=== PATIENT | female | born 1980 | race African-American/Black ===

== ENCOUNTER 2021-08-01 13:15 | Emergency (ER) | payer MEDICAID ==
[~2021-08-01] VITALS: Ht 182.9 cm; Wt 107.0 kg
[~2021-08-01 13:15] MED LIST: NO MEDICATIONS REPORTED
[2021-08-01] MEDS ORDERED: VISCOUS LIDOCAINE 2% 15 ML UDC PO STA (13:55)
[2021-08-01] MEDS ORDERED: MAGNESIUM/ALUMINUM HYDROXIDE/SIMETHICONE 30ML UDC PO STA (13:55)
[2021-08-01] MEDS ORDERED: SODIUM CHLORIDE 0.9% 1,000 ML IV ONE ×2 (14:00→17:15)
[2021-08-01] MEDS ORDERED: ONDANSETRON HCL 4MG/2ML INJ IV ONE (14:00)
[2021-08-01 14:34] LABS: CHLORIDE 106 mEq/L (98-107)
[2021-08-01] MEDS ORDERED: MORPHINE SULFATE 4 MG/ML CPJ (NOT FOR IM USE) IV ONE (15:45)
[2021-08-01] MEDS ORDERED: DIATR MEGLU/DIATRIZOATE SOLN 30ML PO ONE (15:45)
[2021-08-01] MEDS ORDERED: ONDA4TAB11 PO (17:50)
[2021-08-01] MEDS ORDERED: ONDANSETRON 4MG ODT PO ONE (18:00)
[2021-08-01 20:04] VITALS: BP 129/87
[2021-08-02] MEDS ORDERED: NITR100C MT (12:46)
[2021-08-02] MEDS ORDERED: HYDR-4005 MT (15:34)
== END 2021-08-01 20:04 | disposition home or self-care (01) ==
LOC: ER 13:15
DX: F10.129 Alcohol abuse with intoxication, unspecified (principal); R11.2 Nausea with vomiting, unspecified; I10 Essential (primary) hypertension; F14.10 Cocaine abuse, uncomplicated; F12.10 Cannabis abuse, uncomplicated; F17.210 Nicotine dependence, cigarettes, uncomplicated; Y90.9 Presence of alcohol in blood, level not specified; Z90.79 Acquired absence of other genital organ(s)
CPT/HCPCS: 36415; 71045; 80053; 83690; 93005; 96374; 96375; 99285; J2270; J2405; J7030; Q0162; Q9963

== ENCOUNTER 2021-08-02 08:36 | Emergency (ER) | payer MEDICAID ==
[~2021-08-02] VITALS: Ht 165.1 cm; Wt 91.0 kg
[~2021-08-02 08:36] MED LIST changes: +ONDA4TAB11 PO
[2021-08-02] MEDS ORDERED: FAMOTIDINE 20MG/2ML VIAL IV ONE (10:00)
[2021-08-02] MEDS ORDERED: ONDANSETRON HCL 4MG/2ML INJ IV ONE (10:00)
[2021-08-02] MEDS ORDERED: MORPHINE SULFATE 4 MG/ML CPJ (NOT FOR IM USE) IV ONE (10:00)
[2021-08-02] MEDS ORDERED: DEXAMETHASONE 10 MG/ML VIAL IV ONE (11:30)
[2021-08-02] MEDS ORDERED: METOCLOPRAMIDE HCL 10MG/2ML VIAL IV ONE (11:30)
[2021-08-02 11:47] LABS: CLARITY URINE CLOUDY (CLEAR); COLOR URINE YELLOW (YELLOW); KETONES URINE 3+ (NEGATIVE); LEUKOCYTE ESTERASE URINE 1+ (NEGATIVE); NITRITE URINE NEGATIVE (NEGATIVE); OCCULT BLOOD URINE NEGATIVE (NEGATIVE); PH URINE 5.5 (4.5-8.0); PROTEIN URINE NEGATIVE (NEGATIVE); SPECIFIC GRAVITY URINE 1.031 (1.005-1.030)
[2021-08-02 11:57] LABS: BASOPHILS % 0.2 % (0.0-2.0); EOSINOPHILS % 0.1 % (0.0-5.0); HEMATOCRIT. 39.2 % (36.0-48.0); HEMOGLOBIN. 13.1 g/dL (12.0-16.0); LYMPHOCYTES % 11.6 % (20.0-50.0); MEAN CORPUSCULAR HEMOGLOBIN 32.1 pg (28.0-32.0); MEAN CORPUSCULAR VOLUME 96.4 fL (81.0-99.0); MONOCYTES % 5.4 % (2.0-8.0); NEUTROPHILS % 82.7 % (40.0-76.0); PLATELET 244 x1000/uL (130-400); RED BLOOD CELL COUNT 4.07 mill/uL (4.2-5.4)
[2021-08-02 12:02] LABS: CHLORIDE 107 mEq/L (98-107)
[2021-08-02 12:06] LABS: PROTHROMBIN TIME 10.9 sec (9.6-11.0)
[2021-08-02] MEDS ORDERED: CEFTRIAXONE 1 G PREMIX 50 ML IV ONE (12:15)
[2021-08-02] MEDS ORDERED: NITR100C MT (12:46)
[2021-08-02] MEDS ORDERED: IBUPROFEN 400MG TABLET PO ONE (14:30)
[2021-08-02] MEDS ORDERED: HYDROCODONE/APAP 7.5/325MG 1 TAB TABLET PO PRN (14:30)
[2021-08-02] MEDS ORDERED: HYDR-4005 MT (15:34)
[2021-08-02 15:35] VITALS: BP 147/86
== END 2021-08-02 16:04 | disposition home or self-care (01) ==
LOC: ER 09:03
DX: N39.0 Urinary tract infection, site not specified (principal); F12.10 Cannabis abuse, uncomplicated; F14.10 Cocaine abuse, uncomplicated; I10 Essential (primary) hypertension
CPT/HCPCS: 36415; 80053; 81003; 83690; 85025; 85610; 87086; 96365; 96375; 99284; J0696; J1100; J2270; J2405; J2765; J3490; Z7610

== ENCOUNTER 2022-03-15 12:32 | Emergency (ER) | payer MEDICAID ==
[~2022-03-15] VITALS: Ht 170.2 cm; Wt 105.0 kg
[~2022-03-15 12:32] MED LIST changes: +HYDR-4005 MT; +NITR100C MT
[2022-03-15] MEDS ORDERED: ACETAMINOPHEN 325MG TABLET PO STA (13:01)
[2022-03-15] MEDS ORDERED: ONDANSETRON 4MG ODT PO STA (13:01)
[2022-03-15] MEDS ORDERED: IBUPROFEN 600MG TABLET PO STA (13:01)
[2022-03-15 13:50] LABS: HEMATOCRIT. 39.7 % (36.0-48.0); HEMOGLOBIN. 13.4 g/dL (12.0-16.0); MEAN CORPUSCULAR HEMOGLOBIN 31.9 pg (28.0-32.0); MEAN CORPUSCULAR VOLUME 94.4 fL (81.0-99.0); MEAN PLATELET VOLUME 8.7 fl (7.4-10.4); PLATELET 202 x1000/uL (130-400); RED BLOOD CELL COUNT 4.21 mill/uL (4.2-5.4); RED CELL DISTRIBUTION WIDTH 13.9 % (11.6-14.6)
[2022-03-15 14:05] LABS: CHLORIDE 102 mEq/L (98-107)
[2022-03-15 14:12] LABS: HCG SCREEN NEGATIVE
[2022-03-15 14:15] LABS: PLATELET ESTIMATE NORMAL
[2022-03-15 15:33] LABS: CLARITY URINE CLOUDY (CLEAR); COLOR URINE DARK YELLOW (YELLOW); KETONES URINE 4+ (NEGATIVE); LEUKOCYTE ESTERASE URINE NEGATIVE (NEGATIVE); NITRITE URINE NEGATIVE (NEGATIVE); OCCULT BLOOD URINE NEGATIVE (NEGATIVE); PH URINE 6.5 (4.5-8.0); PROTEIN URINE 1+ (NEGATIVE); SPECIFIC GRAVITY URINE 1.028 (1.005-1.030)
[2022-03-15] MEDS ORDERED: IBUP-2029 MT (17:29)
[2022-03-15] MEDS ORDERED: ONDA4TAB11 PO (17:29)
[2022-03-15 18:00] VITALS: BP 126/76
[2022-03-15] MEDS ORDERED: ONDANSETRON 4MG ODT PO ONE (18:15)
[2022-03-15] MEDS ORDERED: KETOROLAC 60MG/2ML VIAL IM ONE (18:15)
== END 2022-03-15 18:46 | disposition home or self-care (01) ==
LOC: ER 12:32
DX: U07.1 COVID-19 (principal); E88.89 Other specified metabolic disorders; I10 Essential (primary) hypertension; F14.10 Cocaine abuse, uncomplicated; F12.10 Cannabis abuse, uncomplicated
CPT/HCPCS: 36415; 80053; 81003; 83690; 84703; 85025; 87426; 96372; 99284; C9803; J1885; Q0162